=== PATIENT | female | born 2000 | race American Indian/Alaskan Native ===

== ENCOUNTER 2020-10-02 23:15 | Emergency (ER) | payer MEDICAID, OTHER ==
[2020-10-03 00:24] VITALS: BP 121/83
[2020-10-03] MEDS ORDERED: ACETAMINOPHEN 325 MG TAB PO ONE (00:30)
== END 2020-10-03 04:52 ==
LOC: ED 23:15
DX: R50.9 Fever, unspecified (principal); Z53.21 Procedure and treatment not carried out due to patient leaving prior to being seen by health care provider